=== PATIENT | female | born 1935 | race Caucasian/White ===

== ENCOUNTER 2017-04-08 20:59 | Inpatient (IN) | payer MEDICARE, OTHER ==
[~2017-04-08 20:59] MED LIST: ARICEPT DPS5 MG PO; ASPIRIN EC81 MG PO; BACITRACIN15 G1 TP; GLUCOPHAGE-DPS500 MG PO; KLOR-CON 88 MEQ PO; MOTRIN IB200 MG PO; NAMENDA5 MG PO; NORCO 5-325 TA1 EACH PO; PRILOSEC DPS20 MG PO; SEROQUEL25 MG PO; SYNTHROID112 MCG PO; ZESTRIL DPS20 MG PO
[2017-04-12] MEDS ORDERED: TYLENOL DPS325 MG PO (10:36)
[2017-04-12] MEDS ORDERED: ZOFRAN4 MG PO (10:36)
[2017-04-12] MEDS ORDERED: TOPROL XL100 MG PO (10:37)
== END 2017-04-11 14:20 | disposition short-term general hospital (02) | DRG 841 ==
DX: C82.98 Follicular lymphoma, unspecified, lymph nodes of multiple sites (principal); N17.9 Acute kidney failure, unspecified; Z51.5 Encounter for palliative care; E87.5 Hyperkalemia; F03.90 Unspecified dementia, unspecified severity, without behavioral disturbance, psychotic disturbance, mood disturbance, and anxiety; N12 Tubulo-interstitial nephritis, not specified as acute or chronic; Z23 Encounter for immunization; I10 Essential (primary) hypertension; E03.9 Hypothyroidism, unspecified; M15.9 Polyosteoarthritis, unspecified; E55.9 Vitamin D deficiency, unspecified; K21.9 Gastro-esophageal reflux disease without esophagitis; Z79.82 Long term (current) use of aspirin; Z87.891 Personal history of nicotine dependence; Z87.442 Personal history of urinary calculi; Z66 Do not resuscitate